=== PATIENT | male | born 1965 ===

== ENCOUNTER 2017-03-05 17:12 | Emergency (ER) | payer SELFPAY ==
[~2017-03-05] VITALS: Ht 170.2 cm; Wt 65.0 kg
[2017-03-05 17:21] VITALS: Ht 170.2 cm; Wt 65.0 kg
== END 2017-03-05 21:00 | disposition left against medical advice (07) ==
LOC: FTE 17:12
DX: Z53.21 Procedure and treatment not carried out due to patient leaving prior to being seen by health care provider (principal)

== ENCOUNTER 2017-11-19 23:39 | Emergency (ER) | END 2017-11-20 10:10 | disposition home or self-care (01) ==